=== PATIENT | male | born 1995 | race Caucasian/White ===

== ENCOUNTER 2019-09-11 12:26 | Emergency (ER) | payer OTHER ==
[~2019-09-11] VITALS: Ht 185.4 cm; Wt 73.5 kg
--- NOTE | 2019-09-11 13:22 | NUR ---
PT HAS CO LEFT UPPER EXTREMITY PAIN. PT STATES HE THINKS IT MAY BE A BLOOD CLOT. HX OF BLOOD CLOT IN EARLY SPRING. WAS ON XARALTO FOR 6 MONTHS. PT STATES HE HAD PAIN AND REDNESS IN ARM. SYMPTOMS HAVE RESOLVED. PULSE 2+
[2019-09-11 13:39] VITALS: BP 116/68
--- NOTE | 2019-09-11 13:40 | NUR ---
US AT BEDSIDE
--- NOTE | 2019-09-11 15:07 | NUR ---
Patient/Caregiver given discharge instructions and they have confirmed that they understand the instructions. Patient ambulatory with steady gait.
[2019-09-11] MEDS ORDERED: SERT25TA PO (15:08)
== END 2019-09-11 15:10 | disposition home or self-care (01) ==
LOC: ED 15:00
DX: M79.602 Pain in left arm (principal)
CPT/HCPCS: 93005; 99284